=== PATIENT | female | born 1980 | race Asian ===

== ENCOUNTER 2018-05-17 11:37 | Inpatient (IN) | payer SELFPAY ==
[~2018-05-17] VITALS: Ht 170.2 cm; Wt 84.8 kg
[2018-05-17] MEDS ORDERED: LR 1,000 ML IV ONE (11:51)
[2018-05-17] MEDS ORDERED: CEFAZOLIN 2 GM IVPB PREMIX 50 ML IV ONE (12:00)
[2018-05-17 12:19] LABS: BASOPHILS % (AUTO) 0.2 % (0.0-2.0); EOSINOPHILS % (AUTO) 0.5 % (0.0-4.0); HEMATOCRIT 34.4 % (36-48); HEMOGLOBIN 12.1 g/dL (12.0-16.0); LYMPHOCYTES # (AUTO) 1.4 K/uL (1.0-5.5); LYMPHOCYTES % (AUTO) 25.5 % (20.5-51.5); MEAN CORPUSCULAR HEMOGLOBIN 34 pg (27-31); MEAN CORPUSCULAR HGB CONC 35 % (32-36); MEAN CORPUSCULAR VOLUME 97 fL (79.0-98.0); MONOCYTES # (AUTO) 0.6 K/uL (0.0-1.0); MONOCYTES % (AUTO) 10.5 % (1.7-9.3); NEUTROPHILS # (AUTO) 3.5 K/uL (1.8-7.7); NEUTROPHILS % (AUTO) 63.3 % (40.0-70.0); PLATELET COUNT (AUTO) 220 K/uL (130-430); RED BLOOD CELL COUNT(AUTO) 3.56 MIL/uL (4.2-6.2); RED CELL DISTRIBUTION WIDTH 13.8 % (9.0-15.0); WHITE BLOOD COUNT (AUTO) 5.5 K/uL (4.8-10.8)
[2018-05-17] MEDS ORDERED: OXYTOCIN/0.9 % SODIUM CHLORIDE 1,000 ML IV ONE (12:49)
[2018-05-17] MEDS ORDERED: HYDROcodone/ACETAMIN 5-325 MG TAB (NORCO/ VICODIN) PO PRN (13:00)
[2018-05-17] MEDS ORDERED: LANOLIN 7 GM OINT. TP PRN (13:00)
[2018-05-17] MEDS ORDERED: OXYCODONE/ACETAMINOPHEN 5-325 TABLET PO PRN ×2 (13:00)
[2018-05-17] MEDS ORDERED: MEASLES,MUMPS&RUBELLA VACC/PF 12500 UNIT/0.5 ML VIAL SUBQ PRN (13:00)
[2018-05-17] MEDS ORDERED: ANUSOL 1 EA SUPP.RECT (PREPARATION H) RC PRN (13:00)
[2018-05-17] MEDS ORDERED: LR 1,000 ML IV SCH (13:32)
[2018-05-17] MEDS ORDERED: MORPHINE SULFATE 10MG/10ML PF AMP SP SCH (13:45)
[2018-05-17] MEDS ORDERED: MEPERIDINE HCL/PF 25 MG/ML DISP.SYRIN IVP PRN (13:45)
[2018-05-17] MEDS ORDERED: DIPHENHYDRAMINE INJ 50 MG/ML VIAL IM PRN (13:45)
[2018-05-17] MEDS ORDERED: KETOROLAC TROMETHAMINE 60 MG/2 ML VIAL IM PRN (13:45)
[2018-05-17] MEDS ORDERED: MEPERIDINE HCL/PF 50 MG/ML AMP IVP PRN ×2 (13:45)
[2018-05-17] MEDS ORDERED: ONDANSETRON HCL 4 MG/2 ML VIAL IVP PRN (13:45)
[2018-05-17] MEDS ORDERED: NALOXONE HCL 0.4 MG/ML AMP (NARCAN) IVP PRN (13:45)
[2018-05-17 14:02] VITALS: BP_SYST 110
[2018-05-17] MEDS ORDERED: ePHEDrine sulfate 50 MG/ML VIAL ONE (14:05)
[2018-05-17] MEDS ORDERED: MIDAZOLAM HCL 5 MG/ML VIAL (VERSED) IV ONE (14:05)
[2018-05-17] MEDS ORDERED: OXYTOCIN 10 UNIT/ML VIAL ONE (14:05)
[2018-05-17] MEDS ORDERED: MORPHINE SULFATE 10MG/10ML PF AMP ONE (14:05)
[2018-05-17] MEDS ORDERED: LR 1,000 ML IV.SOLN IV ONE (14:05)
[2018-05-17] MEDS ORDERED: BUPIVACAINE /DEX PF 0.75% SPINAL 2 ML AMP INJ ONE (14:05)
[2018-05-17] MEDS ORDERED: NS IRRIG SOLN 1000 ML IR ONE (14:05)
[2018-05-17] MEDS ORDERED: ONDANSETRON HCL 4 MG/2 ML VIAL ONE (14:05)
[2018-05-17] MEDS: CEFAZOLIN 1 GM IVPB PREMIX 50 ML IV SCH (17:36)
[2018-05-17] MEDS ORDERED: TEMAZEPAM 15 MG CAPSULE PO PRN (21:00)
[2018-05-18] MEDS: SIMETHICONE 80 MG TAB.CHEW PO PRN ×3 (00:08→23:44)
[2018-05-18] MEDS: CEFAZOLIN 1 GM IVPB PREMIX 50 ML IV SCH ×2 (00:08→06:06)
[2018-05-18] MEDS: IBUPROFEN 600 MG TABLET PO SCH ×4 (06:07→23:44)
[2018-05-18 06:23] LABS: BASOPHILS % (AUTO) 0.3 % (0.0-2.0); EOSINOPHILS % (AUTO) 0.4 % (0.0-4.0); HEMATOCRIT 30.3 % (36-48); HEMOGLOBIN 10.2 g/dL (12.0-16.0); LYMPHOCYTES # (AUTO) 1.5 K/uL (1.0-5.5); LYMPHOCYTES % (AUTO) 16.3 % (20.5-51.5); MEAN CORPUSCULAR HEMOGLOBIN 33 pg (27-31); MEAN CORPUSCULAR HGB CONC 34 % (32-36); MEAN CORPUSCULAR VOLUME 97 fL (79.0-98.0); MONOCYTES # (AUTO) 0.8 K/uL (0.0-1.0); MONOCYTES % (AUTO) 8.9 % (1.7-9.3); NEUTROPHILS # (AUTO) 6.9 K/uL (1.8-7.7); NEUTROPHILS % (AUTO) 74.1 % (40.0-70.0); PLATELET COUNT (AUTO) 178 K/uL (130-430); RED CELL DISTRIBUTION WIDTH 13.3 % (9.0-15.0); WHITE BLOOD COUNT (AUTO) 9.2 K/uL (4.8-10.8)
[2018-05-18] MEDS: DOCUSATE SODIUM 100 MG CAPSULE PO PRN (23:44)
[2018-05-19] MEDS: IBUPROFEN 600 MG TABLET PO SCH ×3 (06:06→18:26)
[2018-05-19] MEDS: DOCUSATE SODIUM 100 MG CAPSULE PO PRN (12:04)
== END 2018-05-19 18:50 | disposition home or self-care (01) | DRG 766 ==
LOC: SPU 11:37 → SMU 05-18 10:43 → SPU 05-18 21:13
PROVIDERS: ADMIT Obstetrics & Gynecology; ATTEND Obstetrics & Gynecology
PROC: 10D00Z1 Extraction of Products of Conception, Low, Open Approach (ICD-10-PCS; principal; 2018-05-17 12:30)
DX: O69.81X0 Labor and delivery complicated by cord around neck, without compression, not applicable or unspecified (principal); Z37.0 Single live birth; Z3A.39 39 weeks gestation of pregnancy
CPT/HCPCS: 36415; 81002-TC; 85025; 86886; 86900; 86901; 94760; J0690; J2250; J2274; J2405; J2590; J3490; J7120